=== PATIENT | female | born 1960 | race Caucasian/White ===

== ENCOUNTER 2018-07-14 18:14 | Emergency (ER) | payer OTHER ==
[~2018-07-14] VITALS: Ht 160 cm; Wt 49.9 kg
--- NOTE | 2018-07-14 18:35 | NUR ---
PATIENT WAS MSE BY DR CARCAMO IN ROOM 05A. PATIENT A & O X3.
--- NOTE | 2018-07-14 18:49 | NUR ---
Patient discharged to home in stable conditon. Written and verbal after care instructions given. Patient verbalizes understanding of instructions.
[2018-07-14 18:51] VITALS: BP 119/75
== END 2018-07-14 19:00 | disposition home or self-care (01) ==
LOC: ER 18:27
DX: R21 Rash and other nonspecific skin eruption (principal)
CPT/HCPCS: A4663